=== PATIENT | male | born 1950 | race Caucasian/White ===

== ENCOUNTER 2021-12-08 09:03 | Observation (INO) ==
[2021-12-08 09:37] LABS: Basophils # 0.1 10*3/uL (0.0-0.2); Basophils % 0.8 % (0.0-0.8); Eosinophils # 0.2 10*3/uL (0.0-0.87); Eosinophils % 3.1 % (0.00-10.9); Hematocrit 41.9 VOL% (42.0-52.0); Hemoglobin 13.7 GM/DL (14.0-18.0); Immature Granulocytes % 0.5 %; Immature Granulocytes Absolute 0.04 #; Lymphocytes # 2.1 10*3/uL (1.4-4.0); Lymphocytes % 27.7 % (21.2-54.2); Mean Corpuscular HGB Conc 32.7 GM/DL (32-36); Mean Corpuscular Volume 87.1 FL (87-102); Mean Platelet Volume 9.4 FL (9.6-12.0); Monocytes # 0.7 10*3/uL (0.11-0.8); Monocytes % 9.3 % (1.7-12.7); Neutrophils % 58.6 % (38.7-73.9); Platelet Count 203 T/CUMM (130-400); Red Blood Count 4.81 MC/CUMM (3.8-5.5); Red Cell Distribution Width 13.1 % (9.3-17.3); White Blood Count 7.4 T/CUMM (4-12)
[2021-12-08] MEDS ORDERED: hydrALAZINE 20 MG/1 ML VIAL IV STA (09:54)
[2021-12-08 09:59] LABS: Albumin 4.1 G/DL (3.4-5.0); Bilirubin,Total 0.5 MG/DL (0.20-1.00); Calcium 9.1 MG/DL (8.5-10.1); Osmolality,Calculated 276.2 MOS/KG (273-304); Potassium 5.2 MMOL/L (3.5-5.1); Total Protein 7.6 G/DL (6.4-8.2)
[2021-12-08] MEDS ORDERED: ENOXAPARIN 80 MG/0.8 ML SYRINGE SUBCUT STA (10:54)
[2021-12-08] MEDS ORDERED: ASPIRIN CHEW 81 MG TABLET PO STA (10:54)
[2021-12-08] MEDS ORDERED: NICOTINE 21 MG/24 HR PATCH TRANSDERM PRN (11:39)
[2021-12-08] MEDS ORDERED: GLUCAGON 1 MG VIAL IM PRN (11:39)
[2021-12-08] MEDS ORDERED: ONDANSETRON 4 MG/2 ML VIAL IV PRN (11:39)
[2021-12-08] MEDS ORDERED: DEXTROSE 10% 250 ML BAG IV PRN (11:53)
[2021-12-08] MEDS ORDERED: KETOROLAC 30 MG/1 ML VIAL IV STA (11:57)
[2021-12-08] MEDS: SODIUM CHLORIDE 0.9% 1,000 ML IV SCH ×2 (12:30→22:40)
[2021-12-08] MEDS: INSULIN LISPRO 100 UNIT/ML SUBCUT SCH ×2 (16:40→22:39)
[2021-12-09] MEDS: SODIUM CHLORIDE 0.9% 1,000 ML IV SCH ×3 (02:53→20:31)
[2021-12-09 05:50] LABS: Basophils # 0.1 10*3/uL (0.0-0.2); Basophils % 0.8 % (0.0-0.8); Eosinophils # 0.2 10*3/uL (0.0-0.87); Eosinophils % 3.5 % (0.00-10.9); Hematocrit 39.8 VOL% (42.0-52.0); Hemoglobin 12.8 GM/DL (14.0-18.0); Immature Granulocytes % 0.3 %; Immature Granulocytes Absolute 0.02 #; Lymphocytes # 1.9 10*3/uL (1.4-4.0); Lymphocytes % 31.8 % (21.2-54.2); Mean Corpuscular HGB Conc 32.2 GM/DL (32-36); Mean Corpuscular Volume 88.8 FL (87-102); Mean Platelet Volume 9.7 FL (9.6-12.0); Monocytes # 0.7 10*3/uL (0.11-0.8); Monocytes % 10.9 % (1.7-12.7); Neutrophils % 52.7 % (38.7-73.9); Platelet Count 194 T/CUMM (130-400); Red Blood Count 4.48 MC/CUMM (3.8-5.5)
[2021-12-09] MEDS ORDERED: diphenhydrAMINE CAP 25 MG CAPSULE PO ONE (06:00)
[2021-12-09] MEDS ORDERED: DIAZEPAM 5 MG TABLET PO ONE (06:00)
[2021-12-09 06:12] LABS: Calcium 8.5 MG/DL (8.5-10.1); Osmolality,Calculated 284.5 MOS/KG (273-304); Potassium 4.6 MMOL/L (3.5-5.1)
[2021-12-09] MEDS ORDERED: NITROGLYCERIN DRIP 50 MG/250 ML BOTTLE IV ONE (07:03)
[2021-12-09] MEDS ORDERED: VERAPAMIL 5 MG/2 ML VIAL ONE (07:03)
[2021-12-09] MEDS: PANTOPRAZOLE 40 MG TABLET PO SCH (08:00)
[2021-12-09] MEDS ORDERED: MIDAZOLAM 2 MG/2 ML VIAL ONE ×2 (08:07→08:29)
[2021-12-09] MEDS ORDERED: fentaNYL 100 MCG/2 ML VIAL ONE ×2 (08:07→08:29)
[2021-12-09] MEDS ORDERED: ENOXAPARIN 30 MG/0.3 ML SYRINGE ONE (08:53)
[2021-12-09] MEDS ORDERED: TIROFIBAN 5,000 MCG/100 ML PREMIX IV ONE (08:54)
[2021-12-09] MEDS ORDERED: TICAGRELOR 90 MG TABLET ONE (09:30)
[2021-12-09] MEDS: TIROFIBAN 5,000 MCG/100 ML PREMIX IV SCH ×2 (09:36→16:12)
[2021-12-09] MEDS: INSULIN LISPRO 100 UNIT/ML SUBCUT SCH ×4 (10:23→22:04)
[2021-12-09] MEDS: methylPREDNISolone SOD SUC 125 MG/2 ML VIAL IV SCH ×2 (10:33→18:10)
[2021-12-09] MEDS: LEVOFLOXACIN 500 MG TABLET PO SCH (10:34)
[2021-12-09] MEDS: ENOXAPARIN 40 MG/0.4 ML SYRINGE SUBCUT SCH (10:34)
[2021-12-09] MEDS: ALBUTEROL/IPRATROPIUM 3 ML NEB RESP TX SCH ×2 (14:00→19:54)
[2021-12-09] MEDS: GABAPENTIN 300 MG CAPSULE PO SCH ×2 (16:44→20:32)
[2021-12-09] MEDS: TICAGRELOR 90 MG TABLET PO SCH (20:32)
[2021-12-09] MEDS ORDERED: ROSUVASTATIN 20 MG TABLET PO SCH (21:00)
[2021-12-10] MEDS: ALBUTEROL/IPRATROPIUM 3 ML NEB RESP TX SCH ×2 (00:33→07:12)
[2021-12-10] MEDS: SODIUM CHLORIDE 0.9% 1,000 ML IV SCH (04:10)
[2021-12-10 06:11] LABS: Basophils % 0.1 % (0.0-0.8); Hematocrit 39.1 VOL% (42.0-52.0); Hemoglobin 12.7 GM/DL (14.0-18.0); Immature Granulocytes % 0.9 %; Immature Granulocytes Absolute 0.08 #; Lymphocytes # 0.8 10*3/uL (1.4-4.0); Lymphocytes % 9.3 % (21.2-54.2); Mean Corpuscular HGB Conc 32.5 GM/DL (32-36); Mean Corpuscular Volume 87.7 FL (87-102); Mean Platelet Volume 9.9 FL (9.6-12.0); Monocytes # 0.2 10*3/uL (0.11-0.8); Monocytes % 2.5 % (1.7-12.7); Neutrophils % 87.2 % (38.7-73.9); Platelet Count 199 T/CUMM (130-400); Red Blood Count 4.46 MC/CUMM (3.8-5.5); Red Cell Distribution Width 13.1 % (9.3-17.3); White Blood Count 8.6 T/CUMM (4-12)
[2021-12-10] MEDS: PANTOPRAZOLE 40 MG TABLET PO SCH (06:18)
[2021-12-10 06:37] LABS: Calcium 8.2 MG/DL (8.5-10.1); Osmolality,Calculated 288.7 MOS/KG (273-304); Potassium 4.5 MMOL/L (3.5-5.1); Risk Ratio 4.95; VLDL Cholesterol 28.8 MG/DL
[2021-12-10] MEDS ORDERED: methylPREDNISolone 4 MG TABLET PO SCH (07:00)
[2021-12-10 08:22] VITALS: BP 177/71
[2021-12-10] MEDS ORDERED: lisinopriL 20 MG TABLET PO SCH (09:00)
[2021-12-10] MEDS ORDERED: METOPROLOL SUCCINATE XL 25 MG TABLET PO SCH (09:00)
[2021-12-10] MEDS ORDERED: ASPIRIN EC 81 MG TABLET PO SCH (09:00)
[2021-12-10] MEDS: GABAPENTIN 300 MG CAPSULE PO SCH (09:08)
[2021-12-10] MEDS: LEVOFLOXACIN 500 MG TABLET PO SCH (09:08)
[2021-12-10] MEDS: TICAGRELOR 90 MG TABLET PO SCH (09:08)
[2021-12-10] MEDS: INSULIN LISPRO 100 UNIT/ML SUBCUT SCH (09:35)
[2021-12-10] MEDS: ENOXAPARIN 40 MG/0.4 ML SYRINGE SUBCUT SCH (12:10)
== END 2021-12-10 12:35 | disposition home or self-care (01) ==
LOC: N.ED 09:03 → N.EDINP 09:03 → SUATTDRO 11:39 → N.TELES 18:45
PROVIDERS: ADMIT Internal Medicine; ATTEND Internal Medicine Geriatric Medicine
PROC: CLCCHCL (ICD-10-PCS; 2021-12-09 09:15)